=== PATIENT | female | born 1930 | race Caucasian/White ===

== ENCOUNTER → 2017-05-04 | Outpatient (CLI) | payer BC ==
[~2017-05-04] MED LIST: AMLO2.5T PO; ATOR-22 PO; EZET10TA63 PO; LEVO75TA5 PO; LISI20TA55 PO; LORA-741 PO; NUTRTAB48 PO; TOLT4CAP PO
== END | disposition home or self-care (01) ==
LOC: C.RDSM 17:17
PROVIDERS: ATTEND Physical Medicine & Rehabilitation Sports Medicine
DX: M25.561 Pain in right knee (principal); Z96.642 Presence of left artificial hip joint